=== PATIENT | female | born 1995 | race Asian ===

== ENCOUNTER 2020-07-01 10:28 | Emergency (ER) | payer BC ==
[~2020-07-01] VITALS: Ht 167.6 cm; Wt 58.1 kg
[2020-07-01 12:15] VITALS: BP 111/56; TEMP 98
== END 2020-07-01 12:23 | disposition home or self-care (01) ==
LOC: ED 10:28
DX: S00.83XA Contusion of other part of head, initial encounter (principal); S20.213A Contusion of bilateral front wall of thorax, initial encounter; S16.1XXA Strain of muscle, fascia and tendon at neck level, initial encounter; V40.0XXA Car driver injured in collision with pedestrian or animal in nontraffic accident, initial encounter; Y92.89 Other specified places as the place of occurrence of the external cause
CPT/HCPCS: 81025; 99283

== ENCOUNTER 2020-11-06 12:31 | Emergency (ER) | payer BC ==
[~2020-11-06] VITALS: Ht 167.6 cm; Wt 53.1 kg
[2020-11-06 12:41] VITALS: TEMP 97.1
[2020-11-06 13:30] VITALS: BP 101/64
== END 2020-11-06 13:30 | disposition home or self-care (01) ==
LOC: ED 12:31
DX: K08.89 Other specified disorders of teeth and supporting structures (principal); K05.10 Chronic gingivitis, plaque induced
CPT/HCPCS: 96372; 99283; J0696; J1885

== ENCOUNTER 2021-07-01 14:07 | Emergency (ER) | payer OTHER ==
[~2021-07-01] VITALS: Ht 167.6 cm; Wt 53.1 kg
[2021-07-01 14:22] VITALS: BP 110/63; TEMP 97.6
[2021-07-01 14:52] LABS: PLATELET COUNT 273 K/uL (152-353)
[2021-07-01 14:59] LABS: POTASSIUM 3.9 mmol/L (3.6-5.2)
[2021-07-01 15:29] LABS: PARTIAL THROMBOPLASTIN TIME 25.7 SECONDS (24.5-33.6)
== END 2021-07-01 16:06 | disposition home or self-care (01) ==
LOC: ED 14:07
PROVIDERS: Hospitalist
DX: O23.32 Infections of other parts of urinary tract in pregnancy, second trimester (principal); N39.0 Urinary tract infection, site not specified; V49.40XA Driver injured in collision with unspecified motor vehicles in traffic accident, initial encounter; Y92.89 Other specified places as the place of occurrence of the external cause
CPT/HCPCS: 80053; 80307; 80320; 81000; 84702; 85027; 85610; 85730; 99283